=== PATIENT | female | born 1995 | race American Indian/Alaskan Native ===

== ENCOUNTER 2017-03-08 17:18 | Inpatient (IN) | payer MEDICAID ==
[2017-03-08] MEDS ORDERED: diphenhydrAMINE 50 MG/ML SDV IVPUSH ONE (19:00)
[2017-03-08] MEDS ORDERED: Ketorolac 30 MG/ML SDV IVPUSH ONE (19:00)
[2017-03-08] MEDS ORDERED: cefTRIAXone 2 GM in Sodium Chloride 0.9% 100 ML IV ONE (19:00)
[2017-03-08] MEDS ORDERED: Sodium Chloride 0.9% 1,000 ML IV ONE (19:00)
[2017-03-08 19:33] LABS: CHLORIDE,CL 100 mmol/L (101-111); SODIUM,NA 133 mmol/L (135-145)
--- NOTE | 2017-03-08 19:54 | EDM.PDOC ---
ED HPI GENERAL MEDICAL PROBLEM - General Chief Complaint: General Stated Complaint: WHOLE BODY ACHES, [id number] Time Seen by Provider: 03/08/17 18:55 Source of Information: Reports: Patient History Limitations: Reports: No Limitations - History of Present Illness INITIAL COMMENTS - FREE TEXT/NARRATIVE: patient comes emergency department today with complaints of generalized malaise and fatigue for the past 2 days. She has had a fever and chills for the past 2 days. She has had nausea and vomiting intermittently for the past 2 days. She did have some diarrhea yesterday. Does have some vague abdominal pain. She denies any hematuria dysuria or urinary frequency. She does complain of some right-sided flank pain. She denies any headache sinus congestion ear pain or throat pain. No shortness of breath cough or difficulty breathing. Her last period was 1.5 months ago. Generalized Pain Score (Numeric/FACES): 9 - Related Data Allergies Allergy/AdvReac Type Severity Reaction Status Date / Time No Known Allergies Allergy Verified 03/08/17 18:07 Home Meds: Home Meds . [No Known Home Meds] 03/08/17 [History] Past Medical History - Past Health History Medical/Surgical History: Denies Medical/Surgical History Genitourinary History: Reports: Pyelonephritis, STD, UTI, Recurrent FLEECER History: Reports: Other OB/BYN History: Pt states that this is her second Musculoskeletal History: Reports: Other (See Below) Other Musculoskeletal History: fx pelvis Hematologic History: Reports: Anemia - Past Surgical History Musculoskeletal Surgical History: Reports: None Social & Family History - Family History Family Medical History: Noncontributory Respiratory: Reports: Asthma Dermatologic: Reports: Eczema - Tobacco Use Smoking Status *Q: Never Smoker Years of Tobacco use: 2 Packs/Tins Daily: 0.1 Used Tobacco, but Quit: Yes Month Tobacco Last Used: 07/01 Second Hand Smoke Exposure: No - Caffeine Use Caffeine Use: Reports: Soda - Recreational Drug Use Recreational Drug Use: No Drug Use in Last 12 Months: Yes Recreational Drug Type: Reports: Marijuana/Hashish ED ROS GENERAL - Review of Systems Review Of Systems: ROS reveals no pertinent complaints other than HPI. ED EXAM, GENERAL - Physical Exam Exam: See Below Exam Limited By: No Limitations General Appearance: Alert, WD/WN, No Apparent Distress Ears: Normal External Exam, Normal Canal, Normal TMs Nose: Normal Inspection Throat/Mouth: Normal Inspection, Normal Lips, Normal Oropharynx, Other (Lip dried cracked and pealing. ) Head: Atraumatic, Normocephalic Neck: Normal Inspection, Supple, Non-Tender, Full Range of Motion Respiratory/Chest: No Respiratory Distress, Lungs Clear, Normal Breath Sounds, No Accessory Muscle Use Cardiovascular: Normal Peripheral Pulses, Regular Rate, Rhythm Peripheral Pulses: 2+: Radial (L), Radial (R) GI/Abdominal: Normal Bowel Sounds, Soft, Non-Tender, No Distention, No Abnormal Bruit, No Mass (Female) Exam: Deferred Rectal (Female) Exam: Deferred Back Exam: CVA Tenderness (R). No: CVA Tenderness (L) Extremities: Normal Inspection, Normal Range of Motion Neurological: Alert, Oriented, CN II-XII Intact, Normal Cognition Psychiatric: Normal Affect, Normal Mood Skin Exam: Intact, Other (Skin hot flushed and diaphoretic. ) Lymphatic: No Adenopathy Course - Vital Signs Last Recorded V/S: Last Vital Signs Temp 36.8 C 03/08/17 18:08 Pulse 107 H 03/08/17 18:08 Resp 18 03/08/17 18:08 BP 105/51 L 03/08/17 18:08 Pulse Ox 100 03/08/17 18:08 - Orders/Labs/Meds Orders: Active Orders 24 hr Category Date Time Status CULTURE URINE [RM] Stat Lab 03/08/17 18:30 Received HCG QUANTITATIVE,SERUM [CHEM] Stat Lab 03/08/17 20:44 Ordered Labs: Laboratory Tests 03/08/17 03/08/17 03/08/17 Range/Units 18:30 18:30 19:10 WBC 15.1 H (5.0-10.0) 10^3/uL RBC 3.78 L (4.2-5.4) 10^6/uL Hgb 10.6 L D (12.0-16.0) g/dL Hct 31.6 L (37.0-47.0) % MCV 83.6 (80-100) fL MCH 28.0 (27.0-34.0) pg MCHC 33.5 (33.0-35.0) g/dL Plt Count 195 (150-450) 10^3/uL Neut % (Auto) 82.2 H (42.2-75.2) % Lymph % (Auto) 9.5 L (20.5-50.1) % [place] % (Auto) 8.2 H (2-8) % Eos % (Auto) 0.0 L (1.0-3.0) % Baso % (Auto) 0.1 (0.0-1.0) % Sodium (135-145) mmol/L Potassium (3.6-5.0) mmol/L Chloride (101-111) mmol/L Carbon Dioxide (21.0-31.0) mmol/L Anion Gap BUN (7-18) mg/dL Creatinine (0.6-1.3) mg/dL Est Cr Clr Drug Dosing mL/min Estimated GFR (MDRD) BUN/Creatinine Ratio Glucose (74-105) mg/dL Calcium (8.4-10.2) mg/dl Total Bilirubin (0.2-1.0) mg/dL AST (10-42) IU/L ALT (10-60) IU/L Alkaline Phosphatase (42-121) IU/L Total Protein (6.7-8.2) g/dl Albumin (3.2-5.5) g/dl Globulin Albumin/Globulin Ratio Urine Color Dark yellow (YELLOW) Urine Appearance Turbid (CLEAR) Urine pH 6.5 (5.0-9.0) Ur Specific [place] 1.020 (1.005-1.030) Urine Protein 100 H (NEGATIVE) Urine Glucose (UA) Negative (NEGATIVE) Urine Ketones 80 H (NEGATIVE) Urine Occult Blood Small H (NEGATIVE) Urine Nitrite Positive H (NEGATIVE) Urine Bilirubin Negative (NEGATIVE) Urine Urobilinogen 0.2 (0.2-1.0) mg/dL Ur Leukocyte Esterase Large H (NEGATIVE) Urine RBC 30-40 H /HPF Urine WBC >100 H (0-5/HPF) /HPF Ur Epithelial Cells Moderate H /HPF Amorphous Sediment Moderate H (0/HPF) /HPF Urine Bacteria Many H (0-FEW/HPF) /HPF Urine Mucus Many H /LPF Urine HCG, Qual Positive 03/08/17 Range/Units 19:10 WBC (5.0-10.0) 10^3/uL RBC (4.2-5.4) 10^6/uL Hgb (12.0-16.0) g/dL Hct (37.0-47.0) % MCV (80-100) fL MCH (27.0-34.0) pg MCHC (33.0-35.0) g/dL Plt Count (150-450) 10^3/uL Neut % (Auto) (42.2-75.2) % Lymph % (Auto) (20.5-50.1) % [place] % (Auto) (2-8) % Eos % (Auto) (1.0-3.0) % Baso % (Auto) (0.0-1.0) % Sodium 133 L (135-145) mmol/L Potassium 3.1 L (3.6-5.0) mmol/L Chloride 100 L (101-111) mmol/L Carbon Dioxide 21.0 (21.0-31.0) mmol/L Anion Gap 15.1 BUN 6 L (7-18) mg/dL Creatinine 0.7 (0.6-1.3) mg/dL Est Cr Clr Drug Dosing 112.00 mL/min Estimated GFR (MDRD) > 60 BUN/Creatinine Ratio 8.57 Glucose 110 H (74-105) mg/dL Calcium 8.5 (8.4-10.2) mg/dl Total Bilirubin 0.6 (0.2-1.0) mg/dL AST 15 (10-42) IU/L ALT 9 L (10-60) IU/L Alkaline Phosphatase 69 (42-121) IU/L Total Protein 7.5 (6.7-8.2) g/dl Albumin 3.3 (3.2-5.5) g/dl Globulin 4.2 Albumin/Globulin Ratio 0.79 Urine Color (YELLOW) Urine Appearance (CLEAR) Urine pH (5.0-9.0) Ur Specific [place] (1.005-1.030) Urine Protein (NEGATIVE) Urine Glucose (UA) (NEGATIVE) Urine Ketones (NEGATIVE) Urine Occult Blood (NEGATIVE) Urine Nitrite (NEGATIVE) Urine Bilirubin (NEGATIVE) Urine Urobilinogen (0.2-1.0) mg/dL Ur Leukocyte Esterase (NEGATIVE) Urine RBC /HPF Urine WBC (0-5/HPF) /HPF Ur Epithelial Cells /HPF Amorphous Sediment (0/HPF) /HPF Urine Bacteria (0-FEW/HPF) /HPF Urine Mucus /LPF Urine HCG, Qual Meds: Medications Discontinued Medications Generic Name Dose Route Start Last Admin Trade Name Gregory PRN Reason Stop Dose Admin Diphenhydramine HCl 25 mg 03/08/17 19:00 03/08/17 19:19 Benadryl IVPUSH 03/08/17 19:01 25 mg ONETIME ONE Administration Ceftriaxone Sodium 2 gm/ 100 mls @ 200 mls/hr 03/08/17 19:00 03/08/17 19:33 Sodium Chloride IV 03/08/17 19:29 200 mls/hr ONETIME ONE Administration Sodium Chloride 1,000 mls @ 999 mls/hr 03/08/17 19:00 03/08/17 19:17 Normal Saline IV 03/08/17 20:00 999 mls/hr .BOLUS ONE Administration Ketorolac Tromethamine 30 mg 03/08/17 19:00 03/08/17 19:32 Toradol IVPUSH 03/08/17 19:01 30 mg ONETIME ONE Administration - Re-Assessments/Exams Free Text/Narrative Re-Assessment/Exam: 03/08/17 20:11 IV NS 1 liter wide open. Benadryl 25mg IVP Ketorolac 30mg IVP Ceftriaxone 2grams IVPB NS 1 liter wide open. Eventually the patient did tell me that she might be . She had initially told me her last period was 2 weeks ago but now thinks it is about 1.5 months ago. She has had to children by vaginal delivery in the past. Urine Culture. Departure - Departure Time of Disposition: 21:00 Disposition: Admitted As Inpatient 68 Clinical Impression: Pyelonephritis Qualifiers: Weeks of gestation: unspecified Qualified Code(s): Z34.90 - Encounter for supervision of normal , unspecified, unspecified trimester - Discharge Information ED Communication - Discussed Case With (1) Discussed Case With (1): Admitting Provider (Spoke with Dr. Coelho 2012 about the pregnanct patient with a pyelonephritis in the ED. He will come and evaluate the patient in the ED and possibly admit the patient. After evaluation in the ED DR. Coelho accepted the patient for inpatient admission.) - My Orders Last 24 Hours: My Active Orders 03/08/17 18:30 CULTURE URINE [RM] Stat 03/08/17 20:44 HCG QUANTITATIVE,SERUM [CHEM] Stat - Assessment/Plan Last 24 Hours: My Active Orders 03/08/17 18:30 CULTURE URINE [RM] Stat 03/08/17 20:44 HCG QUANTITATIVE,SERUM [CHEM] Stat Assessment:: Pyelonephritis. First diagnosis of current . 2 previous vaginal births. Plan: Admit Dr. Coelho for inpatient management with a patient with a pyelonephritis.
[2017-03-08] MEDS ORDERED: Promethazine 25 MG/ML SDV IM PRN (20:56)
[2017-03-08] MEDS ORDERED: Docusate Sodium 100 MG Cap PO PRN (20:56)
[2017-03-08] MEDS ORDERED: Metoclopramide 10 MG/2 ML SDV IV PRN (20:56)
[2017-03-08] MEDS ORDERED: Ondansetron 4 MG/2 ML SDV IV PRN (20:56)
[2017-03-08] MEDS: Sodium Chloride 0.9% 1,000 ML IV SCH (21:47)
[2017-03-08] MEDS: Acetaminophen 325 MG Tab PO PRN (23:54)
[2017-03-09] MEDS: Sodium Chloride 0.9% 1,000 ML IV SCH ×3 (06:02→21:49)
[2017-03-09 06:55] LABS: CHLORIDE,CL 103 mmol/L (101-111); SODIUM,NA 133 mmol/L (135-145)
[2017-03-09] MEDS: Folic Acid 1 MG Tab PO SCH (08:41)
--- NOTE | 2017-03-09 09:10 | HP ---
PATIENT IDENTIFICATION: Sharon Rosado is a 21-year-old G3, P2-0-0-2, intrauterine , unsure dates, no care, who presents with flank pain, fever, nausea, and vomiting. HISTORY OF PRESENT ILLNESS: The patient states 2 days ago, she started having fevers, unsure of how high, but felt very hot, associated with chills and sweats with subsequent development of right flank pain, worse with palpation as well as body aches, nausea, and vomiting. To put this in context, she has had a history of similar symptoms last year when she was and was diagnosed with pyelonephritis. Initial evaluation in the ER did reveal she was and with suspected pyelonephritis based on her symptoms and urinalysis findings. Because of her pyelonephritis, , no care, risk factors, history of pyelonephritis, nausea and vomiting, the patient is being admitted for further evaluation and management. The patient also describes having spotting/bleeding starting 2 days ago, only with wiping, described as bright red blood and now brownish in color. There has been no cramping associated with this. She denies any leaking of fluid otherwise. To put this in context, she has had a history of STDs in the distant past. The patient has had nausea and vomiting with difficulty keeping fluids down over the last 24 to 48 hours as well. Records were called for, reviewed as below, and supplemented by the patient's history. OB HISTORY: 1. On 12/24/2014, vacuum-assisted vaginal delivery, 8 pounds 6 ounces. Delivery at 41 and 1/7 weeks. 2. On 04/11/2016, 40 and 2/7 weeks, premature rupture of membranes, vacuum- assisted vaginal delivery yeilding a female with scores of 9 and 9, weighing 7 pounds 11 ounces. Complicated by history of pyelonephritis during this as well as Chlamydia, positive THC on UDS, and anemia of acute blood loss. ALLERGIES: None. MEDICATIONS: None in the last 4 months. PAST MEDICAL/PAST SURGICAL HISTORY: Remarkable for pyelo in the in 2016, history of STDs. Otherwise negative and no previous surgeries elicited. FAMILY HISTORY: Negative for defects, anesthesia problems, bleeding problems, immunodeficiency, kidney disease, or diabetes. SOCIAL HISTORY: The patient lives with her boyfriend, Byron Reeves and his mother in [facility]. He is the father of baby of all 3 of her children. She denies any alcohol, tobacco use, or drug use. REVIEW OF SYSTEMS: Otherwise reviewed and felt to be noncontributory. She denies any problems with bowel habits. She does note some minimal urinary frequency. No urgency. She does describe a minimal sore throat which she is getting over. Otherwise review of systems fully reviewed and felt to be noncontributory. OBJECTIVE: Vital Signs: Updated and listed in chart. Temperature 98.2, heart rate 107, blood pressure 105/51, respiratory rate is 18, O2 sats 100% on room air. Appearance: Female, appears her stated age. Somewhat in minimal pain, covering herself with a blanket over mid section but able to answer questions appropriately. Appears nontoxic. HEENT: Head is atraumatic. EOMs intact. PERRLA. No scleral icterus. No obvious otorhinorrhea. Mucous membranes moist. Neck: No obvious tenderness. Lungs: Clear to auscultation bilaterally. No increased work of breathing. Heart: S1 and S2. Regular rate and rhythm. Abdomen: Gravid, fundal height half way between the umbilicus and pubic bone. heart tones are detected in the 150s to 160s. Otherwise, no other organomegaly, pulsatile masses, or obvious hernias. No rebound, rigidity, or guarding. Back: Right-sided flank pain with percussion. No rashes around this area. : Normal external female genitalia. Normal position and presentation of urethra. Sterile speculum exam done revealing a whitish/brownish discharge with wet prep. GC and Chlamydia obtained. Cervix appears closed. Cervical exam deferred as no ultrasounds have been done at this point in time. Extremities: No peripheral edema. Deep tendon reflexes 1-2/4 bilaterally and symmetric in lower extremities. Psychiatric: Mood and affect are congruent. Judgment and insight intact. Skin: Without cyanosis, clubbing, or jaundice. INVESTIGATIONS: White cell count 15.1, hemoglobin 10.6, platelets 195. CMP: Remarkable for sodium 133, potassium 3.1, chloride 100, BUN low at 6, glucose minimally elevated at 110. Urinalysis remarkable for 100 protein, 80 ketones, small occult blood, positive nitrite, large amount of leukocyte esterase, 30 to 40 red cells, and greater than 100 white cells per high-power field with moderate epithelial cells and amorphous sediment with many bacteria and mucous with an HCG that is positive. Pending is an ultrasound to be done when ultrasound is available, most likely tomorrow in the morning. Pending are no care labs as well as a repeat CBC tomorrow. Labs done as above as well. ASSESSMENT/PLAN: 1. Intrauterine , questionable dates, suspect around 16 weeks based on fundal height, heart tones. 2. Pyelonephritis in as evidenced by labs, flank pain, increased white cell count, history of fever and body aches. She has a history of this as well. We will continue Rocephin 1 g IV q.24 hours. She was given Rocephin 2 g IV in the ER. 3. Threatened in her second trimester. This is with her spotting or bleeding. We will do ultrasound tomorrow. heart tones are reassuring. We will continue to follow clinically and closely. Cervix appears closed. 4. Electrolyte abnormalities possibly related to early dehydration, nausea and vomiting. For her labs as her sodium and chloride are low, we will start normal saline at 125 per hour. Follow her potassium closely with a repeat lab in the morning. 5. G3, P2-0-0-2. PLAN: The patient will be admitted, started IV antibiotics, IV fluid resuscitation has been given, and we will continue normal saline at 125 mL/h. Treat with Rocephin, meds for nausea and vomiting have been ordered. Please see orders for further details. I did discuss the patient's medications, usage of medications, safety in as well. We will continue to follow clinically and closely. The patient understands, agrees with the above treatment and plan. The patient will need at least 48 hours in the hospital if not more based on her history of , pyelonephritis, and electrolyte abnormalities. This was discussed with the patient as well. [facility] /[id number]
--- NOTE | 2017-03-09 09:16 | PN ---
DATE: 03/09/2017 SUBJECTIVE: The patient still has some nausea. Currently IV fluids are running. Her flank pain is improving. She has been urinating without issues and describes some increased frequency, however. OBJECTIVE: Vital Signs: Weight 55.248 kg. Temperature 98.3, heart rate 66, blood pressure 100/44, and respiratory rate 16. Appearance: Lying in the bed, waking appropriately. HEENT: Mucous membranes are minimally dry. Lungs: Clear to auscultation bilaterally. No increased work of breathing. Heart: S1 and S2. Regular rate and rhythm. Back: Flank pain is improving. Abdomen: Soft, gravid, Blue's indeterminate, nontender, and nondistended. Bowel sounds positive. No other organomegaly, pulsatile masses, or obvious hernias. No rebound, rigidity, or guarding. LABORATORY DATA: Reveals a white cell count 13, hemoglobin 9.6, and platelets 172. BMP done today remarkable for minimally elevated glucose at 110, calcium low at 8.0, sodium 133, and potassium of 3.3. TSH was 1.48. Urine drug screen yesterday was positive for THC, and urine culture has come back with preliminary greater than 100,000 gram-negative rods with wet prep within normal limits. Ultrasound is being done currently. ASSESSMENT: 1. Intrauterine , suspect second trimester. 2. Pyelonephritis. The patient is currently treated with Rocephin 1 g IV q.24 hours with evidence of gram-negative rods in the urine. We will continue the Rocephin and follow for symptoms. She needs to be afebrile for at least 48 hours or longer possibly prior to discharge and possibly home on later this week if she does well. 3. Electrolyte abnormalities. Sodium is stable at 133. Potassium is improving at 3.3. 4. Leukocytosis, improving. 5. Positive tetrahydrocannabinols on urine drug screen. 6. 3, para 2-0-0-2. PLAN: As above. We will continue antibiotics and follow symptomatically. Ultrasound done today. No labs have been done. Await culture results from the urine and may change antibiotics appropriately. The patient understands. For nausea and vomiting, medicines have been ordered. We will continue to follow closely. We will continue with fluids at this point in time and repeat labs in the morning. [facility] /[id number]
--- NOTE | 2017-03-09 09:47 | US ---
CLINICAL HISTORY: 21-year-old gravid 3 para 2 female (no care) presents "spotting" (FHR rang es 150-160 bpm). INTERPRETATION: Limited obstetrical sonogram confirms enlarged uterus with a single live ( heart rate 156 bpm) intrauterine gestation, longitudinal lie and cephalic presentation. Satisfactory amniotic fluid volume and healthy appearing placenta located anteriorly corpus of the ut erus, extending to the right of midline, but clearly free of the internal cervical os. No sign of ret roplacental hematoma or abruption. Biparietal diameter 4.5 cm approximates a 19 week 5 day gestation; head circumference 16.8 cm equals 19 weeks 4 day gestation; abdominal circumference 14.21 cm equals a 19 week 4 day gestation; and femu r length 2.92 cm equals a 19 week gestation for an average ultrasound age 19 weeks and 4 days. CONCLUSION: Single live 19 week 4 day intrauterine gestation cephalic presentation with anterior plac enta.
[2017-03-09] MEDS: Acetaminophen 325 MG Tab PO PRN ×2 (12:10→21:55)
[2017-03-09] MEDS ORDERED: Sodium Chloride 0.9% 10 ML Syringe FLUSH PRN (14:47)
[2017-03-09] MEDS: cefTRIAXone 1 GM in Sodium Chloride 0.9% 50 ML IV SCH (18:08)
[2017-03-10] MEDS: Sodium Chloride 0.9% 1,000 ML IV SCH (05:32)
[2017-03-10 06:45] LABS: CHLORIDE,CL 106 mmol/L (101-111); SODIUM,NA 136 mmol/L (135-145)
[2017-03-10] MEDS ORDERED: D5 1/2 NS w/ 40 mEq/L KCl 1,000 ML IV SCH (08:30)
[2017-03-10] MEDS: Folic Acid 1 MG Tab PO SCH (09:03)
--- NOTE | 2017-03-10 09:53 | PN ---
DATE: 03/10/2017 SUBJECTIVE: The patient had a fever yesterday with some chills around noon. She has been tolerating liquids. She has not tolerated solid. She was trying to eat cereals this morning. She is tearful today when discussing that she should be kept another day until least 48 hours of being afebrile stating that she has kids at home. OBJECTIVE: Vital Signs: Temperature 97.4, heart rate 85, blood pressure 99/42, respiratory rate 18. Lungs: Clear to auscultation bilaterally. Heart: S1 and S2. Regular rate and rhythm. Abdomen: Fundal height -2 below umbilicus. Flank pain is absent. Extremities: No peripheral edema. No calf pain. LABORATORY DATA: Today, white cell count 11, hemoglobin 8.7, platelets 165. BMP remarkable for potassium low at 2.9, bicarb at 20, low BUN of 4, creatinine 0.5, and calcium is 7.8. E. coli grew out of her urine which is sensitive to Rocephin which she is currently on. ASSESSMENT AND PLAN: 1. Pyelonephritis, consistent with Escherichia coli on medications that are appropriate for her. 2. Febrile illness. Fever yesterday around noon. Did discuss with the patient recommendation to stay in the hospital until 48 hours of being afebrile for safety. 3. Hypokalemia. Potassium has now dropped. We will change fluids to D5 half- normal with 40 KCl per liter and run around 125 mL/h. Check a BMP later today. May consider stopping IV fluids after that if electrolytes are stable, and continue to push p.o. intake. 4. Anemia, most likely iron deficient and related to malnutrition with decreased p.o. intake history and . 5. Intrauterine around 20 weeks with ultrasound returning yesterday revealing intrauterine at 19 and 4/7 weeks, yesterday, making her 19 and 5/7 weeks today. No immediate concerns were noted on this ultrasound. 6. G3, P2-0-0-2. PLAN: As above, we will change fluids. Recheck labs at 1300 hours. They will call me with results. Hopefully, wean her off the IV fluids, push p.o., and anticipate discharge tomorrow afternoon. We will consult social work as she is concerned about her children at home. Father does work. His mother has been taking care of the children as well. We will continue to follow clinically and closely otherwise. The patient understands and agrees the above treatment plan. [facility] /[id number]
[2017-03-10 13:43] LABS: CHLORIDE,CL 108 mmol/L (101-111); SODIUM,NA 135 mmol/L (135-145)
[2017-03-10] MEDS: Potassium Chloride 10 MEQ Tab.ER PO SCH (14:28)
[2017-03-10] MEDS ORDERED: Potassium Chloride 10 MEQ Tab.ER PO ONE (17:00)
[2017-03-10] MEDS: cefTRIAXone 1 GM in Sodium Chloride 0.9% 50 ML IV SCH (18:13)
[2017-03-11 06:49] VITALS: BP 104/46
[2017-03-11 07:00] LABS: CHLORIDE,CL 110 mmol/L (101-111); SODIUM,NA 138 mmol/L (135-145)
[2017-03-11] MEDS: Folic Acid 1 MG Tab PO SCH (08:08)
[2017-03-11] MEDS: Potassium Chloride 10 MEQ Tab.ER PO SCH (08:08)
--- NOTE | 2017-03-12 09:28 | DISCH ---
ADMIT DIAGNOSES: 1. Pyelonephritis associated with fever, chills, sweats, with flank pain, nausea, and vomiting. 2. Intrauterine , questionable dates, confirmed with ultrasound being 19+ weeks. 3. Threatened in second trimester. No concerns on ultrasound. 4. Electrolyte abnormalities including hypokalemia, hypochloremia, as well as hyponatremia. 5. G3, P2-0-0-2. DISCHARGE DIAGNOSES: 1. Pyelonephritis associated with fever, chills, sweats, with flank pain, nausea, and vomiting-resolved. 2. Intrauterine , questionable dates, confirmed with ultrasound being 19+ weeks. 3. Threatened in second trimester. Ultrasound with no concerns. 4. Electrolyte abnormalities including hypokalemia, hypochloremia, as well as hyponatremia, resolving with IV fluids and p.o. intake. 5. Anemia, suspect iron deficient. 6. G3, P2-0-0-2. HISTORY OF PRESENT ILLNESS: Please see H and P. SUMMARY OF HOSPITAL COURSE: The patient was admitted on the above date with the above diagnoses, was followed closely. Started on Rocephin. IV fluids were changed as she had some hyponatremia and hypokalemia. Date prior to discharge, she was tolerating p.o. supplemented with potassium. In addition, when she was admitted, all no care labs were done and updated and listed in chart. The patient did have a fever approximately 48 hours prior to planned discharge, thereafter, no more fevers were noted. She increased her p.o. intake and had corrected electrolyte abnormalities. EVALUATIONS/LAB WORK: ABO blood type O positive. Negative antibody. Rubella immune. RPR nonreactive. Negative GC and chlamydia, with hep C, HIV, and hep B pending. E. coli did grow out of her urine which was sensitive to the Rocephin as well as Ancef. The patient will be going home with Keflex. DISCHARGE EVALUATION: Vital Signs: Last set of vitals are updated and listed in the chart; temperature 98.3, heart rate 72, blood pressure 103/59, respiratory rate 20, O2 sats 94% to 100% on room air. General: The patient wakes appropriately from sleep. Requesting discharge. Denies any flank pain, nausea, vomiting, fever, chills, or sweats. Lungs: Clear to auscultation bilaterally. Heart: S1 and S2. Regular rate and rhythm. Abdomen: No flank pain. Abdomen is gravid. Fundal height approximately -2 below the umbilicus. Extremities: No peripheral edema. No calf pain. LABORATORY DATA: Discharge labs reveal a white cell count 9.4, hemoglobin 8, platelets 166. BMP remarkable for BUN of 4, creatinine 0.4, and calcium 8.3, potassium is up to 3.9. CONDITION ON DISCHARGE COMPARED TO CONDITION ON ADMISSION: Improved. DISCHARGE INSTRUCTIONS: 1. Diet: As tolerated. 2. Activity: As tolerated. 3. Followup: Followup next week with Dr. Coelho in the clinic for new OB visit. DISCHARGE MEDICATIONS: 1. Keflex 500 mg q.i.d. x10 days, dispense 40, no refills, may take 1 to 2 today as she had Rocephin last night at around 7 p.m. 2. Iron sulfate 325 b.i.d. x8 weeks, dispense q.s., no refills. 3. vitamins 1 tab daily #180, no refills. Did discuss importance of followup and ramifications of not doing so with the patient, as well as reasons to return or go to the emergency room. She understands and agrees with the above treatment plan. [facility] /[id number]
== END 2017-03-11 12:25 | disposition home or self-care (01) | DRG 781 ==
LOC: DL.ED 17:18 → DL.MS 20:50 → UNDOADMOB 20:50 → OBSVTOIN 20:50 → INTOOBSV 20:50 → OBSVTOIN 20:56 → DL.MS 20:56
PROVIDERS: ADMIT Family Medicine; ATTEND Family Medicine
DX: O23.02 Infections of kidney in pregnancy, second trimester (principal); E87.1 Hypo-osmolality and hyponatremia; O99.282 Endocrine, nutritional and metabolic diseases complicating pregnancy, second trimester; E86.0 Dehydration; B96.20 Unspecified Escherichia coli [E. coli] as the cause of diseases classified elsewhere; E87.6 Hypokalemia; O99.012 Anemia complicating pregnancy, second trimester; D50.9 Iron deficiency anemia, unspecified; Z3A.19 19 weeks gestation of pregnancy; E87.8 Other disorders of electrolyte and fluid balance, not elsewhere classified
CPT/HCPCS: 99284; 96365; 96375; 96361; 85025; 81001; 36415; 80053; 84702; 87086; 87186; 87210; 87088; 81025; 80305; 87491; 87591; J0696; J1200; J1885; J7030; J7050; 76815; 80048; 84443; 85027; 86592; 86703; 86762; 86803; 86850; 86900; 86901; 87340; A9270-GY; J2405; J2550; J3480

== ENCOUNTER 2017-03-16 18:38 | Emergency (ER) | payer MEDICAID, OTHER ==
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
[~2017-03-16 18:38] MED LIST: Acetaminophen 500 MG Tab PO ONE
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
[2017-03-16 18:42] LABS: SODIUM,NA 136 mmol/L (135-145)
[2017-03-16 18:43] LABS: CHLORIDE,CL 100 mmol/L (101-111)
== END 2017-03-16 18:50 | disposition home or self-care (01) ==
LOC: DL.ED 18:38
DX: O9A.212 Injury, poisoning and certain other consequences of external causes complicating pregnancy, second trimester (principal); S80.02XA Contusion of left knee, initial encounter; S80.01XA Contusion of right knee, initial encounter; Z3A.19 19 weeks gestation of pregnancy
CPT/HCPCS: 36415; 73560; 80053; 80305; 85025; 99285; A9270

== ENCOUNTER 2017-07-28 02:30 | Inpatient (IN) | payer MEDICAID ==
[~2017-07-28 02:30] MED LIST changes: +Acetaminophen 325 MG Tab PO PRN; -Acetaminophen 500 MG Tab PO ONE; +Carboprost Tromethamine 250 MCG/1 ML Amp IM PRN; +Lactated Ringers 1,000 ML IV SCH; +Lactated Ringers 500 ML IV ONE; +Lidocaine 1% 30 ML SDV INJECT PRN; +Methylergonovine 0.2 MG/1 ML Amp IM PRN; +Misoprostol 400 MCG (4 X 100 MCG TAB) RECTAL PRN; +Ondansetron 4 MG/2 ML SDV IV PRN; +Sodium Chloride 0.9% 10 ML Syringe FLUSH PRN; +Tranexamic Acid 1,000 MG in Sodium Chloride 0.9% 100 ML IV PRN
[2017-07-28] MEDS ORDERED: Bupivacaine 0.75%/D5W 2 ML Amp ONE (03:10)
[2017-07-28] MEDS ORDERED: fentaNYL 100 MCG/2 ML SDV ONE (03:10)
--- NOTE | 2017-07-28 03:31 | PCM.SN ---
- Free Text/Narrative Note: Intrathecal. Sitting position, sterile prep and drape. 1 % lidocaine w bicarb for skin wheal to L2 L3 interspace, introducer, 24 ga Sprotte x 1. Pos CSF, neg heme, neg parasthesia. 0.4 ml pf ns, 20 mcg pf sufenta, 30 mcg pf fentanyl and 6 mg of 0.75 % pf bupivacaine injected after CSF aspiration. Pt to L lateral side. Procedure time 0310 to 0340
[2017-07-28] MEDS ORDERED: Oxytocin/Normal Saline 30 UNIT/500 ML BAG IV SCH ×2 (04:30→07:00)
[2017-07-28] MEDS ORDERED: Oxytocin 10 Units/1 ML SDV IM PRN (05:50)
[2017-07-28] MEDS ORDERED: Zolpidem 5 MG Tab PO PRN (05:50)
[2017-07-28] MEDS ORDERED: Simethicone 80 MG Tab.Chew PO PRN (05:50)
[2017-07-28] MEDS ORDERED: Benzocaine/Menthol 20%-0.5% Spray 56 GM Canister TOP PRN (05:50)
--- NOTE | 2017-07-28 07:36 | DEL ---
DATE: 07/28/2017 PREOPERATIVE DIAGNOSES: 1. Intrauterine at 40 and 6/7 weeks' gestation, confirmed with a 20 and 5/7 weeks' ultrasound. 2. Active labor with advanced cervical dilation. 3. Anemia of , hemoglobin 10.6. 4. Group B Streptococcus negative. 5. Positive THC on urine drug screen on 04/01/2017. Urine drug screen negative upon admission. 6. History of fast labors and deliveries. 7. 3, para 2-0-0-2. POSTOPERATIVE DIAGNOSES: 1. Intrauterine at 40 and 6/7 weeks' gestation, confirmed with a 20 and 5/7 weeks' ultrasound, delivered. 2. Active labor with advanced cervical dilation. 3. Anemia of , hemoglobin 10.6. 4. Group B Streptococcus negative. 5. Positive THC on urine drug scree on 04/01/2017. Urine drug screen negative upon admission. 6. History of fast labors and deliveries. 7. 3, para 2-0-0-2. 8. Terminal meconium at delivery. PROCEDURES PERFORMED: NST, AROM, and then subsequent spontaneous vaginal delivery on 07/28/2017. EPIC PRELUDE ANALYST: WALLACE ZazuetaIII. ANESTHESIA/ANALGESIA: The patient did receive an intrathecal in the first stage of labor. ESTIMATED BLOOD LOSS: 100 mL. FINDINGS: Female. scores 9 and 9. Weighing 8 pounds 8 ounces, 3840 g. SUMMARY OF EVENTS: The patient is a 21-year-old, G3, P2-0-0-2, current intrauterine at 40 and 6/7 weeks' gestation confirmed with a 23 and 5/7 weeks' ultrasound, admitted in active labor with advanced cervical dilation. After she requested and received an intrathecal, she subsequently underwent artificial rupture of membranes, yielding initially clear fluid . She was followed thereafter and serially evaluated and was subsequently found to be complete. Dr. Coelho and I were called to the room. We both donned sterile gloves and gowns, and the patient started pushing with contractions in the second stage of labor. With pushing, the vertex was delivered in the GUILLE presentation followed by the anterior-posterior shoulder, followed by the rest of the without difficulty. Mouth and nares were suctioned. Cord was doubly clamped and cut. The was resuscitated in the warmer and then was subsequently taken over to the mother. Then approximately 10 mL of cord blood was obtained for labs. Terminal meconium was collected for meconium drug screen. Placenta was then delivered with gentle cord traction and fundal massage within 10 minutes. The placenta was found to be intact, and there was a three-vessel cord. The perineum, vaginal, and perirectal areas were then examined, and no lesions were observed. Mother is currently stable at the time of dictation. being followed closely after delivery. The history, physical, assessment, and plan are per Dr. Coelho, and this note is being scribed for Dr. Coelho. seen and agreed-DCW. [facility] /[id number] DAGOBERTO
--- NOTE | 2017-07-28 07:39 | PN ---
DATE: 07/28/2017 SUBJECTIVE: The patient is comfortable, status post intrathecal. OBJECTIVE: heart tones in the 130s range. Acceleration noted. Tocometer reveals contractions, currently around 2 to 4 minutes apart. Vaginal exam, 6 and 7 cm, 85% effaced, -1 station, vertex suspected. Artificial rupture of membranes done after discussion with the patient yielding copious amounts of clear fluid. ASSESSMENT: Intrauterine at 40 and 6/7 weeks, admitted in active labor, advanced cervical dilation, and group B Streptococcus negative mother. Labs returned. Hemoglobin was 10.6. Urine drug screen negative upon admission. PLAN: Continue to follow clinically and closely. Plans were discussed with the patient. She understands and agrees. [facility] /[id number]
[2017-07-28] MEDS: Docusate Sodium 100 MG Cap PO PRN ×2 (09:33→22:31)
[2017-07-28] MEDS: Ibuprofen 800 MG Tab PO PRN ×2 (09:34→22:31)
[2017-07-28] MEDS: Prenatal Multivitamin with Calcium/Folic Acid/Iron Tab PO SCH (09:34)
--- NOTE | 2017-07-28 12:03 | OBOUT ---
DATE: 07/28/2017 DATE AND TIME OF NST: Date: 07/28/2017. Time: 2:34 to 2:54. REASON FOR NST: 1. Intrauterine at 40 and 6/7 weeks, confirmed with 23 and 5/7 week ultrasound. 2. Active labor. 3. Advanced cervical dilation. 4. GBS negative. 5. Positive THC on urine drug screen on 04/01/2017. 6. History of fast labors and deliveries. 7. G3, P2-0-0-2. NST INTERPRETATION: During this time period, tone baseline is approximately 135, and therer are at least two 15 x 15 beats per minute accelerations, making this strip reactive. It is also noted to be reassuring. Tocometer reveals potential of 4 contractions during this time period, which the patient is breathing through. ASSESSMENT: 1. Nonstress test, reactive and reassuring. 2. Tocometer with contractions that the patient feels. PLAN: During this NST, vital signs were 134/83, heart rate 88, the patient feels afebrile, and has a temp of 98.9. She was initially evaluated by a nurse and found to be 5 cm at approximately 2:39. Evaluation by Dr. Coelho shortly after 3:05 revealed her cervix to be 6 to 7 cm. The patient is requesting intrathecal. This has been called for and currently be given at current time of dictation. For her history and physical, please see EPIC notes that will be updated and scanned. For this, review of systems were fully reviewed and felt to be otherwise noncontributory other than minimal spotting after yesterday's cervical exam. She denies any bowel or bladder problems. No headaches, visual changes, or upper abdominal pain. Otherwise, review of systems completely reviewed and felt to be otherwise noncontributory other than as noted in the chart. History of present illness is changed to include the patient has contractions started at 11:00 p.m., coming every 2 to 3 minutes, felt in the lower abdomen, radiating to the back, rated 10/10. Nothing seems to make them better. Time makes them worse. She denies any leaking of fluid. Plan will be to proceed with intrathecal at her request and then consider artificial rupture of membranes. Labs are pending including UDS and a CBC. [facility] /[id number]
[2017-07-29] MEDS: Prenatal Multivitamin with Calcium/Folic Acid/Iron Tab PO SCH (09:28)
[2017-07-29] MEDS: Ibuprofen 800 MG Tab PO PRN (09:28)
[2017-07-29] MEDS: Docusate Sodium 100 MG Cap PO PRN (09:28)
--- NOTE | 2017-07-29 10:58 | DISCH ---
ADMIT DIAGNOSES: 1. Intrauterine 40 and 6/7 weeks, confirmed with 23 and 5/7 week ultrasound. 2. Active labor. 3. Advanced cervical dilation 6+ cm upon admission. 4. Group B streptococcus negative. 5. Positive THC on urine drug screen 03/22/2017, negative upon admission. 6. History of fast labors and deliveries. 7. G3, P2-0-0-2. 8. Anemia of with hemoglobin of 10.6. DISCHARGE DIAGNOSES: 1. Intrauterine 40 and 6/7 weeks, confirmed with 23 and 5/7 week ultrasound-delivered. 2. Active labor. 3. Advanced cervical dilation 6+ cm upon admission. 4. Group B streptococcus negative. 5. Positive THC on urine drug screen 03/22/2017, negative upon admission. 6. History of fast labors and deliveries. 7. G3, P2-0-0-2. 8. Anemia of with hemoglobin of 10.6. 9. Terminal meconium noted at delivery. PROCEDURE PERFORMED: NST, artificial rupture of membranes, spontaneous vaginal delivery on 07/28/2017, per Dr. Coelho. HISTORY OF PRESENT ILLNESS: Please see H and P. SUMMARY OF HOSPITAL COURSE: The patient was admitted on the above date with the above diagnoses, underwent the above procedures, then went on to have a spontaneous vaginal delivery yielding a female with scores of 9 and 9, weighing 8 pounds 8 ounce (3840 g). Please see delivery note for further details. day #1, date of discharge, the patient was tolerating p.o., ambulating, urinating, passing flatus, and requesting discharge. PHYSICAL EXAMINATION: Vital Signs: Last set of vitals updated and listed in the chart. Temperature 98.1, heart rate 60, blood pressure 118/61, respiratory rate 16. Lungs: Clear to auscultation bilaterally. Heart: S1 and S2. Regular rate and rhythm. Pelvic: Firm uterus -2 below umbilicus. Extremities: No peripheral edema. No calf pain. DISCHARGE LABORATORY DATA: White cell count 14.4 compared to admit 17.1, suspect related to demargination. Hemoglobin 9.7 compared to predelivery hemoglobin 10.6. Platelets 188. CONDITION ON DISCHARGE COMPARED TO CONDITION ON ADMISSION: Improved. DISCHARGE INSTRUCTIONS: 1. Diet: As tolerated. 2. Activity: No lifting more than 20 pounds, no sit-ups, straining, and pelvic rest for the next 6 weeks with immediate return to fertility discussed with the patient. 3. Did discuss with the patient in the interim reasons to return or go to the emergency room in detail including, but not limited to, temperature greater than 100.4, foul-smelling discharge, red hot tender breasts, or increased vaginal bleeding. DISCHARGE MEDICATIONS: 1. Ixlv-aed-biewwbm ibuprofen for pain. 2. Iron sulfate 325 b.i.d. x6 weeks. 3. vitamins x6 weeks. Reason to return or go to the emergency room with her was discussed, as well as the importance of followup tomorrow with her infant as well as ramifications of not doing so. Follow up 6 weeks for for the patient. [facility] /[id number]
[2017-07-29 12:07] VITALS: BP 134/76
[2017-07-29] MEDS ORDERED: Measles, Mumps & Rubella Vaccine 0.5 ML SDV SUBCUT ONE (12:33)
[2017-07-29] MEDS ORDERED: fentaNYL 100 MCG/2 ML SDV ITHECAL ONE (13:14)
== END 2017-07-29 13:15 | disposition home or self-care (01) | DRG 775 ==
LOC: DL.OBCHECK 02:30 → DL.OB 02:31 → OBSVTOIN 05:40 → DL.OB 05:40
PROVIDERS: ADMIT Family Medicine; ATTEND Family Medicine
PROC: 10E0XZZ Delivery of Products of Conception, External Approach (ICD-10-PCS; principal; 2017-07-28)
PROC: 10907ZC Drainage of Amniotic Fluid, Therapeutic from Products of Conception, Via Natural or Artificial Opening (ICD-10-PCS; 2017-07-28)
PROC: 00HU33Z Insertion of Infusion Device into Spinal Canal, Percutaneous Approach (ICD-10-PCS; 2017-07-28)
PROC: 3E0R3BZ Introduction of Anesthetic Agent into Spinal Canal, Percutaneous Approach (ICD-10-PCS; 2017-07-28)
DX: O99.02 Anemia complicating childbirth (principal); D64.9 Anemia, unspecified; Z3A.40 40 weeks gestation of pregnancy; Z37.0 Single live birth
CPT/HCPCS: 01967; 36415; 59409; 80305; 85027; 90471; 90707; A9270-GY; J2405; J2590; J3010; J7120

== ENCOUNTER 2018-08-28 10:21 | Inpatient (IN) | payer MEDICAID ==
[2018-08-28] MEDS ORDERED: Lidocaine 1% 30 ML SDV INJECT PRN (11:31)
[2018-08-28] MEDS ORDERED: Tranexamic Acid 1,000 MG in Sodium Chloride 0.9% 100 ML IV PRN (11:31)
[2018-08-28] MEDS ORDERED: Sodium Chloride 0.9% 10 ML Syringe FLUSH PRN ×2 (11:31→15:42)
[2018-08-28] MEDS ORDERED: Carboprost Tromethamine 250 MCG/1 ML Amp IM PRN (11:31)
[2018-08-28] MEDS ORDERED: Misoprostol 400 MCG (4 X 100 MCG TAB) RECTAL PRN (11:31)
[2018-08-28] MEDS ORDERED: Methylergonovine 0.2 MG/1 ML Amp IM PRN (11:31)
[2018-08-28] MEDS ORDERED: Lactated Ringers 500 ML IV ONE (11:31)
[2018-08-28] MEDS ORDERED: Acetaminophen 325 MG Tab PO PRN (11:31)
[2018-08-28] MEDS ORDERED: Ondansetron 4 MG/2 ML SDV IV PRN (11:31)
[2018-08-28] MEDS ORDERED: Oxytocin/Normal Saline 30 UNIT/500 ML BAG IV SCH (11:45)
[2018-08-28] MEDS: Lactated Ringers 1,000 ML IV SCH ×2 (11:50→14:47)
[2018-08-28] MEDS ORDERED: Nalbuphine 10 MG/1 ML Vial IM ONE (14:36)
[2018-08-28] MEDS ORDERED: Oxytocin 10 Units/1 ML SDV IM PRN (15:42)
[2018-08-28] MEDS ORDERED: Zolpidem 5 MG Tab PO PRN (15:42)
[2018-08-28] MEDS ORDERED: Benzocaine/Menthol 20%-0.5% Spray 56 GM Canister TOP PRN (15:42)
[2018-08-28] MEDS ORDERED: Simethicone 80 MG Tab.Chew PO PRN (15:42)
[2018-08-28] MEDS: Ibuprofen 800 MG Tab PO PRN (17:20)
[2018-08-28] MEDS: Docusate Sodium 100 MG Cap PO PRN (17:21)
[2018-08-29] MEDS: Docusate Sodium 100 MG Cap PO PRN (08:09)
[2018-08-29] MEDS: Ibuprofen 800 MG Tab PO PRN ×2 (08:09→19:14)
[2018-08-29] MEDS: Prenatal Multivitamin with Calcium/Folic Acid/Iron Tab PO SCH (08:10)
--- NOTE | 2018-08-29 10:59 | HP ---
Ms. Sharon Rosado is 22-year-old, G4, P3-0-0-3, intrauterine , at 38 and 4/7 weeks by 26 and 5/7 weeks' ultrasound who presents with vaginal leaking. HISTORY OF PRESENT ILLNESS: The patient states she started vaginal leaking at 6:00 a.m. on date of admission after she got up to use the bathroom, thereafter, she continued to have vaginal leaking described as clear fluid in nature slowly leaking and soaking into her underwear at times. Associated with this has been some contractions with tightening felt on the anterior abdomen and most of the pain in the back, rated 7/10, getting worse over time and becoming little bit more increased in frequency. To put this in context, her was remarkable for some limited care. Group B streptococcus negative status and UDS positive for THC on 08/10 and 05/27/2018. Records were called for, reviewed as below, and supplemented by the patient's history. OB HISTORY: 1. On 07/28/2017, delivered 40 and 6/7 weeks, female spontaneous vaginal delivery, weighing 3840 g. 2. On 04/11/2016, 40 and 2/7 weeks, delivered a female, spontaneous vaginal delivery, weighing 3487 g, with pyelonephritis during that . Positive GC and chlamydia during the . 3. On 12/24/2014, 41 weeks 1 day, delivered a male, vacuum assisted vaginal delivery, weighing 3810 g. ANTEPARTUM LABORATORY DATA: ABO blood type O positive. Negative antibody. Rubella immune. Syphilis antibody is nonreactive. Negative hepatitis B surface antigen, hep C, HIV, GC, and Chlamydia. Wet prep remarkable for clue cells. One-hour GTT was not able to be done. Hemoglobin was 10.4 on 08/10/2018, and GBS was negative in the 3rd trimester. ALLERGIES: None. MEDICATIONS: 1. Iron sulfate 325 b.i.d. 2. vitamins daily. PAST MEDICAL/PAST SURGICAL HISTORY: Remarkable for pyelonephritis in previous , history of STDs in the past. GC and Chlamydia in 2015 otherwise felt to be negative. FAMILY HISTORY: Negative family history of defects, anesthesia problems, bleeding problems, stroke, breast cancer, clotting disorders. SOCIAL HISTORY: Lives in [place] with 3 kids, father of baby, Byron Reeves, and his mom. They have 2 dogs. She denies smoking in the past. No alcohol or drug use other than positive THC that has been noted on her drug screens as above. REVIEW OF SYSTEMS: Otherwise, reviewed and felt to be noncontributory. OBJECTIVE: Vital Signs: Blood pressure 112/62, heart rate 73, the patient is afebrile. General Appearance: Female, appears her stated age, acting appropriate for age, nontoxic in appearance, answering questions appropriately in between. HEENT: Head is atraumatic. EOMs intact. PERRLA. No scleral icterus. No obvious otorhinorrhea. Mucous membranes are moist. Neck: No obvious tenderness. Lungs: Clear to auscultation bilaterally. No increased work of breathing. Heart: S1, S2. Regular rate and rhythm. Abdomen: Gravid. Blue indeterminate. Nontender and nondistended. Bowel sounds positive. No organomegaly, pulsatile masses, or obvious hernias. No rebound, rigidity or guarding with monitors applied. : Sterile speculum exam done positive for nitrazine, pooling, and ferning pending. Vaginal exam thereafter revealed to be 4 cm, 75% effaced -1 station, vertex suspected. EXTREMITIES: No peripheral edema. Deep tendon reflexes 2 to 3/4 bilaterally and symmetric in the lower extremities. Mood and affect congruent. Judgment and insight intact. SKIN: Without any cyanosis, clubbing, or jaundice. heart tones in the 125-130 range with reactive strip and reassuring with Tocometer revealing intermittent contractions. ASSESSMENT/PLAN: 1. Intrauterine at 38 and 4/7th weeks by 26 and 5/7 week ultrasound. 2. Spontaneous rupture membranes at 6:00 a.m. on date of admission. 3. Group B Streptococcus negative. 4. Limited/insufficient care. 5. Positive UDS for THC on 08/10 and 05/27/2018. 6. BV-prescription recommended on 05/30/2018. 7. Maternal anemia with hemoglobin 10.4 on 08/10/2018. Been on iron we will recheck CBC today. 8. 4, P3-0-0-3. PLAN: The patient will be admitted, start Pitocin as she is not in active labor. Continue to follow clinically and closely. The patient will let us know when she is ready for an intrathecal. She states she had fast labors and deliveries as well. [facility] /[id number]
--- NOTE | 2018-08-29 11:32 | PN ---
DATE: 08/29/2018 day #1, status post spontaneous vaginal delivery. SUBJECTIVE: No immediate concerns were noted. The patient is tolerating p.o., ambulating, urinating, and passing flatus. OBJECTIVE: Vital Signs: Blood pressure 108/67, heart rate 69, temperature 98, respiratory rate is 18. Lungs: Clear to auscultation bilaterally Heart: Regular rate and rhythm. S1-S2. Pelvic: Firm uterus -2 below umbilicus. No peripheral edema. No calf pain. LABS: White cell count 17.3, hemoglobin 9.7, platelets 187. ASSESSMENT AND PLAN: 1. Postoperative day #1, status post spontaneous vaginal delivery. We will continue to follow clinically and closely. 2. Anemia of /acute blood loss. We will start iron in the mornings. 3. Plan recheck CBC tomorrow. 4. Possible discharge tomorrow. Plans were discussed with the patient. She understands and agrees. [facility] /[id number]
--- NOTE | 2018-08-29 11:35 | OBOUT ---
DATE: 08/28/2018 DATE AND TIME OF NST: Date: 08/28/2018. Time: 11:20 to 11:37. REASON FOR NST: 1. Intrauterine at 38 and 4/7th weeks by 26 and 5/7th weeks ultrasound. 2. Spontaneous rupture of membranes at approximately 6:00 a.m. on the date of admission. 3. GBS negative. 4. Limited/insufficient care. 5. Positive UDS for THC on 08/10/2018 and 05/27/2018. 6. Bacterial vaginosis with treatment recommended on 05/30/2018. 7. Maternal anemia with last hemoglobin 10.4 on 08/10/2018. 8. G4, P3-0-0-3. NST INTERPRETATION: During this time period, heart tone baseline is approximately 130 and there are at least two 15 x 15 beats per minute accelerations, making this strip reactive. It is also noted to be reassuring. Tocometer reveals potential of 3 contractions during this time period with it being broken up, not detected for approximately 5 minutes during this time period as the patient had to use the bathroom. ASSESSMENT/PLAN: 1. Non-stress test - reactive, reassuring. 2. Tocometer contractions. PLAN: Please see admit history and physical for further details. Currently, drawing labs in the near future, and we will proceed with Pitocin augmentation as she does not have an active labor pattern with contractions. The patient understands and agrees with the above treatment plan, and will let us know when she is ready for intrathecal for pain control. [facility] /[id number]
--- NOTE | 2018-08-29 14:23 | DEL ---
DATE: 08/28/2018 PREOPERATIVE DIAGNOSES: 1. Intrauterine at 38 and 4/7th weeks by 26 and 5/7th week ultrasound. 2. Spontaneous rupture of membranes at approximately 6 a.m. on date of admission. 3. Group B Streptococcus negative. 4. Limited/insufficient care. 5. Positive urine drug screen for THC on 08/10/2018 and 08/25/2018. 6. Positive BV, treatment recommended on 05/30/2018. 7. Maternal anemia with a hemoglobin of 10.4. 8. G4, P3-0-0-3. POSTOPERATIVE DIAGNOSES: 1. Intrauterine at 38 and 4/7th weeks by 26 and 5/7th week ultrasound, delivered. 2. Spontaneous rupture of membranes at approximately 6 a.m. on date of admission. 3. Group B Streptococcus negative. 4. Limited/insufficient care. 5. Positive urine drug screen for THC on 08/10/2018 and 08/25/2018. 6. Positive BV, treatment recommended on 05/30/2018. 7. Maternal anemia with a hemoglobin of 10.4. 8. G4, P3-0-0-3. PROCEDURES PERFORMED: NST followed by Pitocin augmentation and then subsequent spontaneous vaginal delivery. ANESTHESIA/ANALGESIA: The patient did receive Nubain in the first stage of labor. FINDINGS: Female. Apgars scores and weight pending. ESTIMATED BLOOD LOSS: 150 mL. SUMMARY OF EVENTS: The patient is a 22-year-old, G4, P3-0-0-3, intrauterine at 38 and 4/7th weeks by 26 and 5/7 weeks' ultrasound admitted with spontaneous rupture of membranes at approximately 6 a.m. on date of admission. She required some Pitocin augmentation as she was only 4 cm upon arrival. She rapidly progressed into the second stage of labor within hours, was found to be complete, and I was called to the room. She did receive Nubain prior to this when she was in the first stage of labor around 4 cm. I believe she went from 4 cm to complete within less than an hour. After she was found to be complete, I was called to the room, donned sterile gown and gloves, and the patient had the urge to push. Subsequently, with the patient pushing with contractions, vertex was delivered in FABBY presentation, followed by anterior and posterior shoulder, as well as the rest of the without difficulty. Mouth and nares were suctioned. Cord was doubly clamped and cut, and was resuscitated on mother's abdomen. Then, approximately 10 mL cord blood was obtained for labs. Placenta was then delivered with gentle cord traction and fundal massage within 5 minutes. Perineum, vagina, and perirectal areas were then examined without any tears or lacerations. Mother and infant are currently stable at the time of dictation. [facility] /[id number]
[2018-08-30] MEDS: Ibuprofen 800 MG Tab PO PRN (07:38)
[2018-08-30] MEDS: Docusate Sodium 100 MG Cap PO PRN (07:38)
[2018-08-30] MEDS ORDERED: Ferrous Sulfate 325 MG Tab PO SCH (08:00)
[2018-08-30] MEDS: Prenatal Multivitamin with Calcium/Folic Acid/Iron Tab PO SCH (08:48)
--- NOTE | 2018-08-30 10:54 | DISCH ---
ADMISSION DIAGNOSES: 1. Intrauterine at 38 and 4/7th weeks by 26 and 5/7th-week ultrasound. 2. Spontaneous rupture of membranes at approximately 6:00 a.m. on the date of admission. 3. GBS negative. 4. Limited/insufficient care. 5. Positive UDS for THC on 08/10/2018 and 05/27/2018. 6. BV with treatment recommended on 05/30/2018. 7. Maternal anemia with hemoglobin 10.1 upon admission. 8. G4, P3-0-0-3. DISCHARGE DIAGNOSES: 1. Intrauterine at 38 and 4/7th weeks by 26 and 5/7th-week ultrasound, delivered. 2. Spontaneous rupture of membranes at approximately 6:00 a.m. on the date of admission. 3. GBS negative. 4. Limited/insufficient care. 5. Positive UDS for THC on 08/10/2018 and 05/27/2018. 6. BV with treatment recommended on 05/30/2018. 7. Maternal anemia with hemoglobin 10.1 upon admission. 8. G4, P3-0-0-3. 9. Anemia, acute blood loss. Hemoglobin dropping down to 9.6. PROCEDURE PERFORMED: NST, Pitocin augmentation, and spontaneous vaginal delivery per Dr. Coelho on 08/28/2018. HISTORY OF PRESENT ILLNESS: Please see H and P. SUMMARY OF HOSPITAL COURSE: The patient was admitted on the above date with the above diagnoses, underwent the above procedures, then went on to have a spontaneous vaginal delivery yielding a female, scores 8 and 9, weighing 3400 g, with an EBL around 150 mL. Please see delivery note for further details. day #1, please see progress note. day #2, date of discharge, the patient was tolerating p.o., ambulating, urinating, passing flatus. PHYSICAL EXAMINATION: Vital Signs: Last set of vitals updated and listed in the chart; temperature 97.9, heart rate 80, blood pressure 117/63, and respiratory rate 18. Lungs: Clear to auscultation bilaterally. Heart: S1 and S2. Regular rate and rhythm. Abdomen: Firm uterus -2 below umbilicus. Extremities: No peripheral edema. No calf pain. LABORATORY DATA: White cell count came down to 15.1 from 17.3 the day before, hemoglobin down to 9.6, and platelets 184. CONDITION ON DISCHARGE COMPARED TO CONDITION ON ADMISSION: Improved. DISCHARGE INSTRUCTIONS: 1. Diet: As tolerated. 2. Activity: No lifting more than 20 pounds. No sit-ups, straining, and pelvic rest for the next 6 weeks with immediate return to fertility discussed with the patient 3. Reasons to return or go to the emergency room were discussed with the patient in detail including, but not limited to, temperature greater than 100.4, foul-smelling discharge, red hot tender breasts, or increased vaginal bleeding. DISCHARGE MEDICATIONS: 1. [id number] Tylenol or ibuprofen for pain. 2. Iron sulfate 325 mg b.i.d. x6 weeks. 3. vitamins x6 weeks, which the patient has. FOLLOWUP: Follow up in 6 weeks . I did discuss with the patient in the interim reasons to return or go to the emergency room in regard to her infant as well. She understands and agrees with the above treatment plan. [facility] /[id number]
[2018-08-30 11:26] VITALS: BP 108/59
== END 2018-08-30 09:45 | disposition home or self-care (01) | DRG 806 ==
LOC: DL.OBCHECK 10:21 → DL.OB 11:43 → OBSVTOIN 15:33
PROVIDERS: ADMIT Family Medicine; ATTEND Family Medicine
PROC: 10E0XZZ Delivery of Products of Conception, External Approach (ICD-10-PCS; principal; 2018-08-28)
DX: O99.03 Anemia complicating the puerperium (principal); D62 Acute posthemorrhagic anemia; Z37.0 Single live birth; Z3A.38 38 weeks gestation of pregnancy
CPT/HCPCS: 36415; 59025; 59409; 82274; 83986; 85027; A9270-GY; J2300; J2405; J2590; J7120

== ENCOUNTER 2019-12-30 17:34 | Emergency (ER) | payer MEDICAID ==
[2019-12-30] MEDS ORDERED: Ketorolac 30 MG/ML SDV IVPUSH ONE (17:45)
[2019-12-30] MEDS ORDERED: GI Cocktail Oral Solution 30 ML PO ONE (17:46)
[2019-12-30] MEDS ORDERED: Iopamidol 612 MG/ML 100 ML Bottle IVPUSH ONE (17:51)
[2019-12-30 18:00] VITALS: BP 132/90; PULSE 92
[2019-12-30 18:12] LABS: ANION GAP 11.2 mEq/L (7-13); CHLORIDE,CL 96 mmol/L (98-107); SODIUM,NA 133 mmol/L (136-145)
[2019-12-30] MEDS ORDERED: cefTRIAXone 2 GM in Sodium Chloride 0.9% 100 ML IV ONE (18:40)
--- NOTE | 2019-12-30 18:48 | CT ---
PROCEDURE INFORMATION: Exam: CT Abdomen And Pelvis With Contrast Exam date and time: 12/30/2019 6:23 PM Age: 23 years old Clinical indication: Other: Wbc 18,500--pain after eating fatty food; Additional info: Epigastric pain in a female TECHNIQUE: Imaging protocol: Computed tomography of the abdomen and pelvis with intravenous contrast. Radiation optimization: All CT scans at this facility use at least one of these dose optimization techniques: automated exposure control; mA and/or kV adjustment per patient size (includes targeted exams where dose is matched to clinical indication); or iterative reconstruction. Contrast material: [id number]; Contrast volume: 75 ml; Contrast route: INTRAVENOUS (IV); COMPARISON: No relevant prior studies available. FINDINGS: Lungs: Patchy mild peripheral alveolar opacities are present in the posteromedial left lower lobe and to a lesser degree the anterolateral left lower lobe suspicious for early/mild pneumonia. No evidence of cavitation or associated pleural effusion. Heart: Heart size normal. Mediastinal space: The visualized distal esophagus is normal. Liver: Normal size and contour. No mass lesions. No intrahepatic biliary ductal dilatation. Moderate periportal edema in the liver. This is nonspecific in nature and could be seen with volume overload or possibly hepatitis. Gallbladder and bile ducts: The gallbladder is contracted but otherwise unremarkable. Nondilated biliary system. Pancreas: Normal. No inflammatory changes or ductal dilation. Spleen: Normal. No splenomegaly. Adrenals: Normal. No adrenal mass. Kidneys and ureters: No acute abnormalities. No hydronephrosis or hydroureter. No urinary tract stones are identified. Stomach and bowel: The stomach is grossly normal. Mild bowel wall thickening in the distal small bowel with excessive fluid content in the mid and distal small bowel segments suggesting enteritis or gastroenteritis. No evidence of bowel obstruction, perforation, or abscess. There is a moderate amount of stool distributed in the mid and proximal colon suggesting constipation. Appendix: The appendix is normal in caliber and demonstrates no evidence of appendicitis. Intraperitoneal space: No free fluid or air. Vasculature: No acute process. No abdominal aortic aneurysm. Lymph nodes: No adenopathy. Bladder: There is a small amount of air in the urinary bladder, probably related to recent catheterization although clinical correlation is recommended. No gross signs of fistula otherwise. Reproductive: IUD in the uterus, grossly well-positioned. Prominent adnexal veins bilaterally with mildly dilated left gonadal vein measuring up to 9.5 mm diameter, suspicious for pelvic congestion syndrome. Bones/joints: No acute osseous abnormalities. Soft tissues: Unremarkable. IMPRESSION: 1. Patchy alveolar densities in the left lower lobe concerning for early/mild pneumonia. 2. Excessive fluid content in the mid and distal small bowel segments with scattered areas of equivocal bowel wall thickening suspicious for an element of enteritis or gastroenteritis. No evidence of bowel obstruction, perforation, or abscess. 3. Moderate colonic stool suggesting an element of constipation. 4. Air in the urinary bladder, probably related to recent catheterization although clinical correlation is recommended. 5. Moderate periportal edema in the liver. This is nonspecific and could be seen with volume overload or hepatitis. 6. Prominent adnexal veins and mild dilatation of the left gonadal vein, suggesting pelvic congestion syndrome.
--- NOTE | 2019-12-30 21:22 | ER ---
CHIEF COMPLAINT: Epigastric pain. HISTORY OF PRESENT ILLNESS: This is a 23-year-old female brought in this evening by ambulance complaining of right-sided upper gastric pain that started about 1 hour after eating macaroni and cheese, corn dogs, and a pork chop. She has a history of urinary tract infections and pyelonephritis and reports that this pain feels very similar. No nausea or vomiting. No chest pain or shortness of breath. Urine has had a stronger odor, but no dysuria, frequency, or urgency. No burning with urination. She denies constipation or diarrhea. She reports light alcohol use, and denies other drug use. Denies any body else in the household has been sick with any similar symptoms. PAST MEDICAL HISTORY: Recurrent UTIs and pyelonephritis. PAST SURGICAL HISTORY: None. FAMILY HISTORY: Noncontributory. SOCIAL HISTORY: She is living in [place] with 4 children and not currently working. All of her deliveries have been vaginal. She denies any other specific concerns or problems. REVIEW OF SYSTEMS: Pertinent positives and negatives as listed above under the history of present illness. PHYSICAL EXAMINATION: General: A 23-year-old female who appears older than her stated age, essentially sleeping on the hospital cart. When she was wheeled in, she was growing and moaning with abdominal pain, and now she is resting comfortably. Vital Signs: Temperature is 97.0, pulse is 92, blood pressure 132/90, respiratory rate of 16, and O2 saturations 100% on room air. HEENT: Head: Normocephalic. She has some mosquito bites noted on her forehead. Neck: Supple with no adenopathy. Heart: Regular without any murmur. Lungs: Clear to auscultation bilaterally. She has an occasional mucus- containing cough that sounds consistent with smoking. Abdomen: Soft. Mild tenderness across the epigastrium. Right and left sides are equal. No distention. No masses. Bowel sounds are normal. Active CVA tenderness is absent. Extremities: Full range of motion. No edema. No tenderness. She has an IV in her right antecubital fossa. Skin without jaundice. LABORATORY DATA: White blood cell count 18.5, neutrophils 88.6%, hemoglobin 13.4, platelets are 307. Chemistry: Sodium 133, potassium 3.2, chloride 96, creatinine 1.06, calcium 8.1, AST 50, and albumin 3.3, otherwise within normal limits. Amylase and lipase are negative. Urinalysis: Trace protein, small occult blood, positive nitrites, large leukocyte esterase, wbc's 75 to 100 per high-powered field, moderate bacteria. Urine test negative. Epithelial cells only few. CT scan report, some patchy density in the left lower lobe concerning for early pneumonia. A little bit of excessive fluid in the distal small bowel suspicious for early gastroenteritis. No signs of obstruction or perforation or abscess. Moderate amount of colonic stool consistent with constipation. Small amount of air present in the urinary bladder. Some periportal edema in the liver, nonspecific and could be seen with volume overload or hepatitis, and some prominent adnexal veins and mild dilatation of the left gonadal vein suggestive of pelvic congestion syndrome. ASSESSMENT: Acute pyelonephritis in a patient with a history of recurrent pyelonephritis and UTIs. Overall, nonspecific findings on CT scan with a mild cough that she has potential for early pneumonia, but the patient was denying any pneumonia symptoms on admission. PLAN: The patient was given 2 g of IV Rocephin and 1 shot of Toradol for pain relief and she is feeling symptomatically much better. She has been given a prescription for ciprofloxacin 500 mg p.o. b.i.d. for 5 days and instructed to follow up with her primary care provider, Dr. Coelho, if symptoms fail to improve. Given her history of recurrent urinary issues, I suspect urological followup would be indicated as well. [facility] /[id number]
== END 2019-12-30 19:30 | disposition home or self-care (01) ==
LOC: DL.ED 17:34
DX: N10 Acute pyelonephritis (principal)
CPT/HCPCS: 36415; 74177; 80053; 81001; 81025; 82150; 83690; 85025; 87086; 87088; 87186; 96365; 96375; 99284; A9270; J0696; J1885; J7050; Q9967; 99283

== ENCOUNTER 2021-12-30 18:41 | Emergency (ER) | payer MEDICAID ==
[2021-12-30] MEDS ORDERED: Sodium Chloride 0.9% 10 ML Syringe FLUSH PRN (18:42)
[2021-12-30] MEDS ORDERED: Ibuprofen 600 MG Tab PO ONE (18:42)
[2021-12-30] MEDS ORDERED: Cephalexin 500 MG Cap PO ONE (18:42)
[2021-12-30 19:09] VITALS: BP 126/80; PULSE 115
[2021-12-30 19:13] LABS: ANION GAP 13.8 mEq/L (7-13); CHLORIDE,CL 106 mmol/L (98-107); SODIUM,NA 143 mmol/L (136-145)
[2021-12-30] MEDS ORDERED: Lidocaine 1% 5 ML VIAL INJECT ONE (19:13)
[2021-12-30] MEDS ORDERED: Bacitracin Oint 1 GM U/D Packet TOP ONE (19:14)
[2021-12-30] MEDS ORDERED: Lidocaine 1% 5 ML VIAL ONE (19:28)
[2021-12-30] MEDS ORDERED: Bacitracin Oint 1 GM U/D Packet ONE (19:28)
[2021-12-30 19:44] LABS: ESTIMATED GFR 81 mL/min (>=60)
[2021-12-30] MEDS ORDERED: Mupirocin Oint 22 GM Tube ONE (20:57)
[2021-12-30] MEDS ORDERED: Ibuprofen 600 MG Tab ONE (20:57)
[2021-12-30] MEDS ORDERED: Cephalexin 500 MG Cap ONE (20:57)
[2021-12-30 21:04] LABS: AMPHETAMINES,URINE POSITIVE (NEGATIVE); BARBITURATES,URINE NEGATIVE (NEGATIVE); BENZODIAZEPINE,URINE NEGATIVE (NEGATIVE); MDMA (ECSTASY), URINE POSITIVE (NEGATIVE); METHADONE,URINE NEGATIVE (NEGATIVE); METHAMPHETAMINES,URINE POSITIVE (NEGATIVE); OPIATES,URINE NEGATIVE (NEGATIVE); OXYCODONE,URINE NEGATIVE (NEGATIVE); PHENCYCLIDINE,URINE NEGATIVE (NEGATIVE); TCA,URINE NEGATIVE (NEGATIVE)
== END 2021-12-30 21:22 | disposition home or self-care (01) ==
LOC: DL.ED 18:41
DX: S22.32XA Fracture of one rib, left side, initial encounter for closed fracture (principal); S01.311A Laceration without foreign body of right ear, initial encounter; F10.10 Alcohol abuse, uncomplicated; Y90.6 Blood alcohol level of 120-199 mg/100 ml; Y04.0XXA Assault by unarmed brawl or fight, initial encounter
CPT/HCPCS: 12013; 36415; 71101; 80053; 80305; 80307; 81001; 81003; 83735; 84703; 85025; 86140; 87086; 87088; 87186; 99283; A9270; J3490

== ENCOUNTER 2022-10-17 22:40 | Emergency (ER) | payer MEDICAID ==
[2022-10-17] MEDS ORDERED: Lactated Ringers 1,000 ML IV ONE (22:53)
[2022-10-17 23:03] LABS: BASOPHILS PERCENT AUTO 0.3 % (0.0-1.0); EOSINOPHILS PERCENT AUTO 1.6 % (1.0-3.0); HEMATOCRIT 35.8 % (37.0-47.0); HEMOGLOBIN 12.1 g/dL (12.0-16.0); LYMPHOCYTES PERCENT AUTO 50.2 % (20.5-50.1); MEAN CORPUSCULAR HEMOGLOBIN 31.1 pg (27.0-34.0); MEAN CORPUSCULAR HGB CONC 33.8 g/dL (33.0-35.0); MONOCYTES PERCENT AUTO 6.8 % (2-8); NEUTROPHILS PERCENT AUTO 41.1 % (42.2-75.2); PLATELET COUNT,PLT 229 10^3/uL (150-450); RED BLOOD CELL COUNT 3.89 10^6/uL (4.2-5.4); WHITE BLOOD CELL COUNT,WBC 6.4 10^3/uL (5.0-10.0)
[2022-10-17 23:05] LABS: APPEARANCE,URINE CLEAR (CLEAR); BILIRUBIN,URINE NEGATIVE (NEGATIVE); COLOR,URINE YELLOW (YELLOW); GLUCOSE,URINE NEGATIVE (NEGATIVE); KETONES,URINE NEGATIVE (NEGATIVE); LEUKOCYTE ESTERASE,URINE NEGATIVE (NEGATIVE); NITRITE,URINE NEGATIVE (NEGATIVE); OCCULT BLOOD,URINE NEGATIVE (NEGATIVE); PH,URINE 6.5 (5.0-9.0); PROTEIN,URINE NEGATIVE (NEGATIVE); UROBILINOGEN,URINE 0.2 mg/dL (0.2-1.0)
[2022-10-17] MEDS ORDERED: Iopamidol 612 MG/ML 100 ML Bottle IVPUSH ONE (23:09)
[2022-10-17 23:11] LABS: AMPHETAMINES,URINE NEGATIVE (NEGATIVE); BARBITURATES,URINE NEGATIVE (NEGATIVE); BENZODIAZEPINE,URINE NEGATIVE (NEGATIVE); MDMA (ECSTASY), URINE NEGATIVE (NEGATIVE); METHADONE,URINE NEGATIVE (NEGATIVE); METHAMPHETAMINES,URINE NEGATIVE (NEGATIVE); OPIATES,URINE NEGATIVE (NEGATIVE); OXYCODONE,URINE NEGATIVE (NEGATIVE); PHENCYCLIDINE,URINE NEGATIVE (NEGATIVE); TCA,URINE NEGATIVE (NEGATIVE)
[2022-10-17 23:16] LABS: ALANINE AMINOTRANSFERASE,ALT 16 U/L (14-59); ALBUMIN 3.7 g/dL (3.4-5.0); ALKALINE PHOSPHATASE 89 U/L (46-116); AMYLASE 47 U/L (25-115); ANION GAP 13.6 mEq/L (7-13); ASPARTATE AMNIOTRANSFERASE,AST 21 U/L (15-37); BILIRUBIN TOTAL 0.3 mg/dL (0.2-1.0); BLOOD UREA NITROGEN,BUN 7 mg/dL (7-18); BUN/CREATININE RATIO 7.4 (No establ ref range); C-REACTIVE PROTEIN 0.5 mg/dL (0.0-0.9); CALCIUM 8.4 mg/dL (8.5-10.1); CARBON DIOXIDE,CO2 24 mmol/L (21-32); CHLORIDE,CL 107 mmol/L (98-107); CREATININE 0.95 mg/dL (0.55-1.02); ETHANOL BLOOD MEDICAL 268 mg/dL (0); GLUCOSE RANDOM 102 mg/dL (70-99); LIPASE 40 U/L (73-393); POTASSIUM,K 3.6 mmol/L (3.5-5.1); PROTEIN TOTAL,TP 7.3 g/dL (6.4-8.2); SODIUM,NA 141 mmol/L (136-145)
[2022-10-17 23:21] LABS: ESTIMATED GFR 86 mL/min (>=60)
[2022-10-17 23:25] LABS: HCG QUALITATIVE,SERUM NEGATIVE (NEGATIVE); INR 0.9 (0.9-1.2); PROTHROMBIN TIME 9.4 SEC (9.0-12.0); PTT,PARTIAL THROMBOPLSTIN TIME 26.2 SEC (22.0-34.0)
== END 2022-10-18 01:24 | disposition home or self-care (01) ==
LOC: DL.ED 22:40
DX: S20.211A Contusion of right front wall of thorax, initial encounter (principal); F10.920 Alcohol use, unspecified with intoxication, uncomplicated; Y90.8 Blood alcohol level of 240 mg/100 ml or more; V86.65XA Passenger of 3- or 4- wheeled all-terrain vehicle (ATV) injured in nontraffic accident, initial encounter
CPT/HCPCS: 36415; 70450; 71260; 72125; 74177; 80053; 80305; 80307; 81003; 82150; 83690; 84703; 85025; 85610; 85730; 86140; 99284; 99285; J7120; Q9967

== ENCOUNTER 2023-11-10 22:49 | Emergency (ER) | payer SELFPAY ==
[2023-11-10] MEDS: Ketorolac 30 MG/ML SDV IM ONE (21:56)
== END 2023-11-10 23:59 ==
LOC: DL.ED 22:49
DX: S42.402A Unspecified fracture of lower end of left humerus, initial encounter for closed fracture (principal); S00.83XA Contusion of other part of head, initial encounter; S50.02XA Contusion of left elbow, initial encounter; Z79.899 Other long term (current) drug therapy; Y04.0XXA Assault by unarmed brawl or fight, initial encounter
CPT/HCPCS: 73080-LT; 96372; 99284; J1885

== ENCOUNTER 2024-02-14 06:10 | Emergency (ER) | payer SELFPAY ==
[2024-02-14 06:37] LABS: APPEARANCE,URINE SLIGHTLY CLOUDY (CLEAR); BILIRUBIN,URINE NEGATIVE (NEGATIVE); COLOR,URINE YELLOW (YELLOW); GLUCOSE,URINE NEGATIVE (NEGATIVE); KETONES,URINE NEGATIVE (NEGATIVE); LEUKOCYTE ESTERASE,URINE TRACE (NEGATIVE); NITRITE,URINE POSITIVE (NEGATIVE); OCCULT BLOOD,URINE TRACE-INTACT (NEGATIVE); PROTEIN,URINE TRACE (NEGATIVE)
[2024-02-14] MEDS: Acetaminophen 325 MG Tab PO ONE (06:38)
[2024-02-14] MEDS: cefTRIAXone 1 GM, Lidocaine 1% 2.1 ML IM ONE (06:42)
[2024-02-14 06:48] VITALS: BP 131/107; PULSE 84
[2024-02-14 06:58] LABS: BACTERIA,URINE MANY /HPF (0-FEW/HPF); EPITHELIAL CELLS,URINE FEW /HPF (NOT SEEN); WBC,URINE 50-75 /HPF (0-5/HPF)
[2024-02-14] MEDS: Ketorolac 30 MG/ML SDV IM ONE (07:11)
== END 2024-02-14 07:27 | disposition home or self-care (01) ==
LOC: DL.ED 06:10
DX: H66.91 Otitis media, unspecified, right ear (principal); N39.0 Urinary tract infection, site not specified
CPT/HCPCS: 81001; 81025; 87081; 87086; 87430; 87635; 87804; 96372; 99283; A9270; J0696; J1885; 87088; 87186; J3490; U0002

== ENCOUNTER 2024-05-20 18:22 | Emergency (ER) | payer OTHER ==
[~2024-05-20 18:22] MED LIST changes: -Acetaminophen 325 MG Tab PO PRN; -Carboprost Tromethamine 250 MCG/1 ML Amp IM PRN; -Lactated Ringers 1,000 ML IV SCH; -Lactated Ringers 500 ML IV ONE; -Lidocaine 1% 30 ML SDV INJECT PRN; -Methylergonovine 0.2 MG/1 ML Amp IM PRN; -Misoprostol 400 MCG (4 X 100 MCG TAB) RECTAL PRN; -Ondansetron 4 MG/2 ML SDV IV PRN; -Tranexamic Acid 1,000 MG in Sodium Chloride 0.9% 100 ML IV PRN
[2024-05-20 18:47] LABS: BASOPHILS PERCENT AUTO 1.2 % (0.0-1.0); EOSINOPHILS PERCENT AUTO 2.3 % (1.0-3.0); HEMATOCRIT 42.5 % (37.0-47.0); HEMOGLOBIN 14.6 g/dL (12.0-16.0); LYMPHOCYTES PERCENT AUTO 20.6 % (20.5-50.1); MEAN CORPUSCULAR HEMOGLOBIN 33.6 pg (27.0-34.0); MEAN CORPUSCULAR HGB CONC 34.4 g/dL (33.0-35.0); MEAN CORPUSCULAR VOLUME 97.9 fL (80-100); MONOCYTES PERCENT AUTO 4.8 % (2-8); NEUTROPHILS PERCENT AUTO 71.1 % (42.2-75.2); PLATELET COUNT,PLT 323 10^3/uL (150-450); RED BLOOD CELL COUNT 4.34 10^6/uL (4.2-5.4); WHITE BLOOD CELL COUNT,WBC 9.1 10^3/uL (5.0-10.0)
[2024-05-20 19:08] LABS: A/G RATIO 0.9; ALANINE AMINOTRANSFERASE,ALT 128 U/L (14-59); ALBUMIN 4.1 g/dL (3.4-5.0); ALKALINE PHOSPHATASE 96 U/L (46-116); ANION GAP 16.8 mEq/L (7-13); ASPARTATE AMNIOTRANSFERASE,AST 134 U/L (15-37); BILIRUBIN TOTAL 0.6 mg/dL (0.2-1.0); BLOOD UREA NITROGEN,BUN 10 mg/dL (7-18); BUN/CREATININE RATIO 11.2 (No establ ref range); CALCIUM 8.8 mg/dL (8.5-10.1); CARBON DIOXIDE,CO2 26 mmol/L (21-32); CHLORIDE,CL 103 mmol/L (98-107); CREATININE 0.89 mg/dL (0.55-1.02); GLUCOSE RANDOM 111 mg/dL (70-99); POTASSIUM,K 3.8 mmol/L (3.5-5.1); PROTEIN TOTAL,TP 8.9 g/dL (6.4-8.2); SODIUM,NA 142 mmol/L (136-145)
[2024-05-20 19:09] LABS: ESTIMATED GFR 92 mL/min (>=60); ETHANOL BLOOD MEDICAL 359 mg/dL (0)
[2024-05-20 19:14] LABS: HCG QUALITATIVE,SERUM NEGATIVE (NEGATIVE)
[2024-05-20] MEDS: Lidocaine 1% with EPINEPHrine 1:100,000 20 ML MDV INJECT ONE (20:15)
[2024-05-20 20:37] VITALS: BP 138/94; PULSE 108
== END 2024-05-20 20:25 | disposition left against medical advice (07) ==
LOC: DL.ED 18:22
DX: S01.81XA Laceration without foreign body of other part of head, initial encounter (principal); F10.10 Alcohol abuse, uncomplicated; Z79.899 Other long term (current) drug therapy; Y04.0XXA Assault by unarmed brawl or fight, initial encounter
CPT/HCPCS: 12013; 36415; 70450; 70486; 71045; 73030-RT; 80053; 80307; 84703; 85025; 99285; J3490